=== PATIENT | female | born 1950 | race Caucasian/White ===

== ENCOUNTER → 2019-01-25 | Outpatient (CLI) | payer MEDICARE ==
--- NOTE | 2019-01-25 09:34 | MM ---
Reason for exam: additional evaluation requested from prior study. Last mammogram was performed 1 year and 2 months ago. History: Patient has history of breast cancer at age 63. Family history of breast cancer in mother at age 60 and breast cancer in paternal aunt. Malignant excisional biopsy of the left breast, 2013. Physical Findings: Nurse did not find any significant physical abnormalities on exam. MG 3D Diag Mammo W/Cad YASMINE Bilateral CC and MLO view(s) were taken. Prior study comparison: November 17, 2017, mammogram. November 11, 2016, mammogram. November 20, 2015, mammogram. Benign appearing bilateral calcifications. There is chronic nodularity in the left breast. No significant new findings when compared with previous films. These results were verbally communicated with the patient and result sheet given to the patient on 01/25/19. ASSESSMENT: Benign, BI-RAD 2 RECOMMENDATION: Routine screening mammogram of both breasts in 1 year.
== END | disposition home or self-care (01) ==
LOC: RADMAMWWP 08:12
PROVIDERS: ATTEND Family Medicine
DX: Z08 Encounter for follow-up examination after completed treatment for malignant neoplasm (principal); Z85.3 Personal history of malignant neoplasm of breast
CPT/HCPCS: 77066; G0279; 77062

== ENCOUNTER → 2019-04-14 | Outpatient (CLI) | payer MEDICARE ==
--- NOTE | 2019-04-14 12:38 | XR ---
EXAMINATION TYPE: XR knee complete RT DATE OF EXAM: 04/14/2019 CLINICAL HISTORY: Nontraumatic right knee pain TECHNIQUE: Three views of the right knee are obtained. COMPARISON: None. FINDINGS: There is no acute fracture/dislocation evident in right knee. The tri-compartment joint s paces appear aligned however there is medial compartment joint space narrowing and small tricompartme ntal osteophytes. Chondrocalcinosis is seen of the lateral compartment subtly. Extensor mechanism is grossly intact radiographically. The overlying soft tissue appears unremarkable. IMPRESSION: There is no acute fracture or dislocation in the right knee. Mild tricompartmental arthr opathy and chondrocalcinosis in the lateral compartment that can be seen in CPPD or other arthropathi es.
== END | disposition home or self-care (01) ==
LOC: RADXRMAIN 10:54
PROVIDERS: ATTEND Family Medicine
DX: M17.11 Unilateral primary osteoarthritis, right knee (principal); M11.261 Other chondrocalcinosis, right knee